=== PATIENT | female | born 2000 | race Caucasian/White ===

== ENCOUNTER 2018-01-22 21:43 | Emergency (ER) | payer OTHER ==
[~2018-01-22] VITALS: Ht 162.6 cm; Wt 50.8 kg
[2018-01-22 21:55] VITALS: BP 115/69
--- NOTE | 2018-01-22 22:01 | NUR ---
PT JODI W/O ASST TO ER CHAIR C
[2018-01-22 22:02] VITALS: BP 115/69
--- NOTE | 2018-01-22 22:03 | NUR ---
PATIENT PRESENTS TO ED WITH COUGH/CONGESTION/SORETHROAT/CHESP PAIN, NAUSEA AND HEADACHE X 3 DAYS. CHEST HURTS WHEN SHE COUGHS PT DENIES V/D; SKIN IS PINK/WARM/DRY; AAOX4 WITH EVEN AND STEADY GAIT; LUNGS CLEAR BL; HR EVEN AND REGULAR; PT DENIES ANY FEVER, CP OR SOB AT THIS TIME; PATIENT STATES PAIN OF 5/10 AT THIS TIME; VSS; PATIENT POSITIONED FOR COMFORT; HOB ELEVATED; BEDRAILS UP X2; BED DOWN. ER MD MADE AWARE OF PT STATUS.
--- NOTE | 2018-01-22 22:13 | NUR ---
MARY LOU ZHANG AT CHAIR FOR GEE
--- NOTE | 2018-01-22 22:57 | NUR ---
PT TO XRAY VIA W/C IN STABLE CONDITION
--- NOTE | 2018-01-22 23:20 | NUR ---
Patient discharged with v/s stable. Written and verbal after care instructions given and explained. Patient alert, oriented and verbalized understanding of instructions. Ambulatory with steady gait. All questions addressed prior to discharge. ID band removed. Patient advised to follow up with PMD. Rx of AUGMENTIN given. Patient educated on indication of medication including possible reaction and side effects. Opportunity to ask questions provided and answered. DISCHARGED BY DR VALDIVIA
== END 2018-01-22 23:19 | disposition home or self-care (01) ==
LOC: MED 21:43
DX: J20.9 Acute bronchitis, unspecified (principal)
CPT/HCPCS: 71045; 81002; 81025; 99284

== ENCOUNTER 2018-03-19 18:36 | Emergency (ER) | payer OTHER ==
[~2018-03-19] VITALS: Ht 162.6 cm; Wt 52.2 kg
[2018-03-19 18:45] VITALS: BP 114/72
--- NOTE | 2018-03-19 19:48 | NUR ---
PT AMBULATED TO BED 2
--- NOTE | 2018-03-19 19:59 | NUR ---
PATIENT PRESENTS TO ED WITH COMPLAINTS OF RUQ PAIN. PATIENT STATES IT STARTED THIS MORNING AND SHE IS EXPERIENCING DIARRHEA. SKIN IS PINK/WARM/DRY; AAOX4 WITH EVEN AND STEADY GAIT; LUNGS CLEAR BL; HR EVEN AND REGULAR; PT DENIES ANY FEVER, CP, SOB, OR COUGH AT THIS TIME; PATIENT STATES PAIN OF 7/10 AT THIS TIME; VSS; PATIENT POSITIONED FOR COMFORT; HOB ELEVATED; BEDRAILS UP X1; BED DOWN. ER MD MADE AWARE OF PT STATUS.
[2018-03-19] MEDS ORDERED: MORPHINE SULFATE 4 MG/ML SYR IVP ONE (20:55)
[2018-03-19] MEDS ORDERED: ONDANSETRON 4 MG/2 ML VIAL IVP ONE (20:55)
[2018-03-19 21:08] LABS: BASOPHILS # (AUTO) 0.1 K/uL (0.00-0.22); BASOPHILS % (AUTO) 0.6 % (0.0-2.0); EOSINOPHILS # (AUTO) 0.1 K/uL (0-0.4); EOSINOPHILS % (AUTO) 0.8 % (0.0-4.0); HEMATOCRIT 43.8 % (36-48); HEMOGLOBIN 14.5 g/dL (12.0-16.0); LYMPHOCYTES # (AUTO) 1.7 K/uL (2.5-16.5); LYMPHOCYTES % (AUTO) 15.7 % (20.5-51.1); MEAN CORPUSCULAR HEMOGLOBIN 30 pg (27-31); MEAN CORPUSCULAR HGB CONC 33 g/dL (33-37); MEAN CORPUSCULAR VOLUME 91.1 fL (80-94); MONOCYTES % (AUTO) 9.7 % (1.7-9.3); NEUTROPHILS # (AUTO) 7.7 K/uL (1.8-7.7); NEUTROPHILS % (AUTO) 73.2 % (42.2-75.2); PLATELET COUNT (AUTO) 267 K/uL (140-450); RED BLOOD CELL COUNT(AUTO) 4.81 MIL/uL (4.20-5.40); RED CELL DISTRIBUTION WIDTH 12.7 % (11.6-13.7); WHITE BLOOD COUNT (AUTO) 10.6 K/uL (4.5-11.0)
--- NOTE | 2018-03-19 21:18 | NUR ---
Pt report given to ANTHONY. Transfer of care at this time.
[2018-03-19 21:19] LABS: ANION GAP 9.9 (8-16); CARBON DIOXIDE 30.4 mmol/L (21-32); CREATININE 0.8 mg/dL (0.6-1.3); POTASSIUM 4.3 mmol/L (3.5-5.1)
--- NOTE | 2018-03-19 21:20 | NUR ---
ASSUMED CARE OF PT AT THIS TIME. PT RESTING COMFORTABLY. PT AWAITS LAB RESULTS AND MD DISPOSITION. NAD. VSS. WILL CONTINUNE TO MONITOR.
[2018-03-19 21:24] LABS: ALBUMIN 4.1 g/dL (3.4-5.0); TOTAL BILIRUBIN 0.4 mg/dL (0.0-1.0)
--- NOTE | 2018-03-19 23:30 | NUR ---
PT RESTING...CONVERSING NORMALLY W/ FAMILY AT BEDSIDE. PT AWAITS CT SCAN. NAD. VSS. WILL CONTINUE TO MONITOR.
[2018-03-20 01:10] VITALS: BP 118/76
--- NOTE | 2018-03-20 01:10 | NUR ---
Patient discharged with v/s stable. Written and verbal after care instructions given and explained. Patient verbalized understanding. Ambulatory with steady gait. All questions addressed prior to discharge. Advised to follow up with PMD.
== END 2018-03-20 01:10 | disposition home or self-care (01) ==
LOC: MED 18:36
DX: R10.9 Unspecified abdominal pain (principal); R11.0 Nausea; R19.7 Diarrhea, unspecified
CPT/HCPCS: 36415; 74177; 80053; 81002; 81025; 83690; 85025; 96374; 96375; 99285; J2270; J2405; Q9967

== ENCOUNTER 2018-06-15 00:15 | Emergency (ER) | payer OTHER ==
[~2018-06-15] VITALS: Ht 162.6 cm; Wt 53.5 kg
[2018-06-15 00:20] VITALS: BP 119/72
[2018-06-15 02:10] VITALS: BP 118/68
== END 2018-06-15 02:10 | disposition home or self-care (01) ==
LOC: MED 00:15
DX: S93.402A Sprain of unspecified ligament of left ankle, initial encounter (principal); X58.XXXA Exposure to other specified factors, initial encounter; Y93.01 Activity, walking, marching and hiking; Y92.218 Other school as the place of occurrence of the external cause; Y99.8 Other external cause status
CPT/HCPCS: 73610; 99284

== ENCOUNTER 2018-09-19 23:09 | Emergency (ER) | payer OTHER ==
[~2018-09-19] VITALS: Ht 162.6 cm; Wt 55.3 kg
[2018-09-19 23:16] VITALS: BP 153/87
--- NOTE | 2018-09-19 23:16 | NUR ---
TO BED # 11 AMBULATORY, REPORT GIVEN TO FERNANDO SHAH
--- NOTE | 2018-09-19 23:20 | NUR ---
PATIENT PRESENTS TO ED WITH C/O LEFT FOOT PAIN X 3 DAYS PT SKIN IS PINK/WARM/DRY; AAOX4 WITH EVEN AND STEADY GAIT; LUNGS CLEAR BL; HR EVEN AND REGULAR; PATIENT STATES PAIN OF 8/10 AT THIS TIME; PATIENT POSITIONED FOR COMFORT; HOB ELEVATED; BEDRAILS UP X2; BED DOWN. ER MD MADE AWARE OF PT STATUS.
--- NOTE | 2018-09-20 00:01 | NUR ---
Dr. Cornejo evaluating patient at bedside.
[2018-09-20 00:10] VITALS: BP 153/87
== END 2018-09-20 00:10 | disposition home or self-care (01) ==
LOC: MED 23:09
DX: M72.2 Plantar fascial fibromatosis (principal)
CPT/HCPCS: 99282

== ENCOUNTER 2018-10-22 21:57 | Emergency (ER) | payer OTHER ==
[~2018-10-22] VITALS: Ht 162.6 cm; Wt 55.3 kg
[2018-10-22 22:07] VITALS: BP 128/60
--- NOTE | 2018-10-22 22:07 | NUR ---
TO BED # 7 AMBULATORY, REPORT GIVEN TO POLLO SHAH
[2018-10-22] MEDS ORDERED: IBUPROFEN 600 MG TAB PO ONE (22:15)
--- NOTE | 2018-10-22 22:19 | NUR ---
Dr. Cornejo evaluating patient at bedside.
--- NOTE | 2018-10-22 22:30 | NUR ---
FLU AND STREP SWABS COLLECTED AND SENT TO LAB.
--- NOTE | 2018-10-22 22:32 | NUR ---
PT BIB SELF C/O SORETHROAT, COUGH, AND BODY ACHES FOR 1 DAY. RR EVEN AND UNLABORED, BL BS CLEAR THROUGHOUT, NON PRODUCTIVE DRY COUGH NOTED. PT TOOK TYLENOL AT HOME W/ MINIMAL RELEIF. NO PMH
[2018-10-22 23:07] VITALS: BP 125/56
== END 2018-10-22 23:07 | disposition home or self-care (01) ==
LOC: MED 21:57
DX: J02.8 Acute pharyngitis due to other specified organisms (principal); B97.89 Other viral agents as the cause of diseases classified elsewhere
CPT/HCPCS: 36415; 87081; 87804; 99283; J7030

== ENCOUNTER 2019-01-02 13:43 | Emergency (ER) | payer OTHER ==
[~2019-01-02] VITALS: Ht 162.6 cm; Wt 54.9 kg
[2019-01-02 13:57] VITALS: BP 96/65
--- NOTE | 2019-01-02 14:04 | NUR ---
PT AMULATED TO BED 12
--- NOTE | 2019-01-02 14:20 | NUR ---
C/O R FOOT PAIN 8/10 ACHING, +EDEMA, +HEMATOMA, PT STATES SHE FELL OFF A LADDER ON WEDNESDAY AND HEARD A CRACK. FEET HAVE BEEN HURTING SINCE. PAIN INCREASES WITH WEIGHT BEARING. 8/10 PAIN.
--- NOTE | 2019-01-02 14:25 | NUR ---
ANTHONY HENDERSON AT BEDSIDE PERFORMING MSE
[2019-01-02] MEDS ORDERED: IBUPROFEN 600 MG TAB PO ONE (15:00)
[2019-01-02 15:57] VITALS: BP 100/70
--- NOTE | 2019-01-02 15:57 | NUR ---
Patient discharged with v/s stable. Written and verbal after care instructions given and explained. Patient alert, oriented and verbalized understanding of instructions. Ambulatory with steady gait. All questions addressed prior to discharge. ID band removed. Patient advised to follow up with PMD. Opportunity to ask questions provided and answered.
== END 2019-01-02 15:57 | disposition home or self-care (01) ==
LOC: MED 13:43
DX: S93.401A Sprain of unspecified ligament of right ankle, initial encounter (principal); M79.609 Pain in unspecified limb; M25.569 Pain in unspecified knee; M25.572 Pain in left ankle and joints of left foot; W11.XXXA Fall on and from ladder, initial encounter; Y93.89 Activity, other specified; Y92.89 Other specified places as the place of occurrence of the external cause; Y99.8 Other external cause status
CPT/HCPCS: 73610; 73630; 81002; 81025; 99283; Q0092

== ENCOUNTER 2019-06-12 02:51 | Emergency (ER) | payer OTHER ==
[~2019-06-12] VITALS: Ht 162.6 cm; Wt 55.3 kg
[2019-06-12 02:56] VITALS: BP 126/69
[2019-06-12] MEDS ORDERED: SUMAtriptan 25 MG TAB PO ONE (03:05)
[2019-06-12 04:09] VITALS: BP 126/69
== END 2019-06-12 04:08 | disposition home or self-care (01) ==
LOC: MED 02:51
DX: G43.909 Migraine, unspecified, not intractable, without status migrainosus (principal)
CPT/HCPCS: 99283

== ENCOUNTER 2020-06-13 04:15 | Emergency (ER) | payer OTHER ==
[~2020-06-13] VITALS: Ht 162.6 cm; Wt 51.7 kg
[2020-06-13 04:18] VITALS: BP 100/55
[2020-06-13] MEDS ORDERED: KETOROLAC 30 MG/ML VIAL IVP ONE (04:35)
[2020-06-13] MEDS ORDERED: NACL 0.9% 1,000 ML IV SCH (04:35)
[2020-06-13] MEDS ORDERED: ONDANSETRON 4 MG/2 ML VIAL IVP ONE (04:35)
[2020-06-13 05:29] LABS: APPEARANCE,URINE CLEAR (CLEAR); BILIRUBIN,URINE NEGATIVE (NEGATIVE); BLOOD, URINE 2+ (NEGATIVE); COLOR,URINE YELLOW (YELLOW); LEUKOCYTE ESTERASE ,URINE TRACE (NEGATIVE); NITRITE, URINE NEGATIVE (NEGATIVE); PH,URINE 6.5 (5.0-9.0); UGLUCOSE NEGATIVE (NEGATIVE)
[2020-06-13 05:29] LABS: BASOPHILS # (AUTO) 0.1 K/uL (0.00-0.22); BASOPHILS % (AUTO) 0.6 % (0.0-2.0); EOSINOPHILS # (AUTO) 0.2 K/uL (0-0.4); EOSINOPHILS % (AUTO) 1.5 % (0.0-4.0); HEMATOCRIT 43.3 % (36-48); HEMOGLOBIN 14.4 g/dL (12.0-16.0); LYMPHOCYTES # (AUTO) 2.3 K/uL (2.5-16.5); LYMPHOCYTES % (AUTO) 21.5 % (20.5-51.1); MEAN CORPUSCULAR HEMOGLOBIN 31 pg (27-31); MEAN CORPUSCULAR HGB CONC 33 g/dL (33-37); MONOCYTES # (AUTO) 0.9 K/uL (0.8-1.0); MONOCYTES % (AUTO) 8.5 % (1.7-9.3); NEUTROPHILS # (AUTO) 7.2 K/uL (1.8-7.7); NEUTROPHILS % (AUTO) 67.9 % (42.2-75.2); PLATELET COUNT (AUTO) 251 K/uL (140-450); RED BLOOD CELL COUNT(AUTO) 4.71 MIL/uL (4.20-5.40); RED CELL DISTRIBUTION WIDTH 12.3 % (11.6-13.7); WHITE BLOOD COUNT (AUTO) 10.6 K/uL (4.8-10.8)
[2020-06-13 05:44] LABS: ALBUMIN 4.4 g/dL (3.4-5.0); ANION GAP 14.7 (8-16); CARBON DIOXIDE 27.5 mmol/L (21-32); CREATININE 0.8 mg/dL (0.6-1.3); POTASSIUM 4.2 mmol/L (3.5-5.1); TOTAL BILIRUBIN 0.4 mg/dL (0.0-1.0)
[2020-06-13 05:45] LABS: RBC,URINE 11-20 (MOD) /HPF (0-5); WBC,URINE TOO MANY TO COUNT /HPF (0-5)
[2020-06-13] MEDS ORDERED: cefTRIAXone 1,000 MG VIAL ONE (05:58)
[2020-06-13 06:18] VITALS: BP 100/55
== END 2020-06-13 06:18 | disposition home or self-care (01) ==
LOC: MED 04:15
DX: N93.0 Postcoital and contact bleeding (principal)
CPT/HCPCS: 36415; 74176; 80053; 81001; 81025; 83690; 85025; 87086; 87186; 96361; 96365; 96375; 99284; J0696; J1885; J2405; J7030